=== PATIENT | male | born 1960 | race Caucasian/White ===

== ENCOUNTER 2020-10-29 07:42 | Outpatient (CLI) | payer OTHER | END 2020-10-29 07:43 | disposition home or self-care (01) | LOC: LABBT 07:42 | PROVIDERS: ATTEND Surgery | DX: Z01.812 Encounter for preprocedural laboratory examination (principal); Z01.810 Encounter for preprocedural cardiovascular examination; M50.20 Other cervical disc displacement, unspecified cervical region; M48.02 Spinal stenosis, cervical region; G95.20 Unspecified cord compression; Z53.9 Procedure and treatment not carried out, unspecified reason | CPT/HCPCS: 93005; 93010 ==